=== PATIENT | male | born 1985 | race Caucasian/White ===

== ENCOUNTER → 2019-12-11 13:53 | Outpatient (BNVA) | payer MEDICAID, SELFPAY | PROVIDERS: Visit Provider Specialist | DX: G40.309 Generalized idiopathic epilepsy and epileptic syndromes, not intractable, without status epilepticus (principal); F17.210 Nicotine dependence, cigarettes, uncomplicated | CPT/HCPCS: 99213 ==

== ENCOUNTER 2020-04-15 17:45 | Emergency (ER) | payer MEDICAID, SELFPAY ==
[2020-04-15 17:50] VITALS: BP 118/76; PULSE 132; RESP 18; TEMP 36.3; O2SAT 96; BMI 34.1
[2020-04-15 18:14] VITALS: BP 114/79; PULSE 112; RESP 17; O2SAT 94
[2020-04-15 18:48] LABS: Basophils # 0.1 10^3/uL (0.0-0.1); Basophils % 0.6 %; Eosinophils # 0.1 10^3/uL (0.0-0.8); Eosinophils % 0.6 %; Hematocrit 51.2 % (42.0-52.0); Hemoglobin 16.7 g/dL (11.7-16.6); Lymphocytes # 1.5 10^3/uL (0.8-4.8); Lymphocytes % 19.2 %; Mean Corpuscular HGB Conc 32.6 g/dL (30.0-36.0); Mean Corpuscular Hemoglobin 28.1 pg (28.0-34.0); Mean Corpuscular Volume 86.1 fL (80-94); Monocytes # 0.6 10^3/uL (0.2-0.9); Monocytes % 7.5 %; Neutrophils # 5.73 10^3/uL (1.8-7.7); Neutrophils % 71.8 %; Nucleated Red Blood Cells % 0 %; Platelet Count 294 10^3/cmm (130-400); Red Blood Count 5.95 10^6/uL (4.1-5.3); Red Cell Distribution Width 13.6 % (12.1-15.1)
[2020-04-15 19:04] LABS: INR 1.06 (0.8-1.2); Partial Thromboplastin Time 29.3 SECONDS (23.9-36.7)
[2020-04-15 19:12] LABS: Alanine Aminotransferase 21 U/L (0-41); Albumin Level 4.2 g/dL (3.5-5.2); Alkaline Phosphatase 97 IU/L (40-130); Aspartate Amino Transferase 18 U/L (0-40); Blood Urea Nitrogen 12 mg/dL (6-20); C Reactive Protein 62.4 mg/L (0.0-4.9); Calcium 9.1 mg/dL (8.5-10.5); Carbon Dioxide 24 mmol/L (22-29); Chloride 102 mmol/L (98-107); Creatinine Clr Calc Pharmacy 152.8932; Glomerular Filtration Rate 127.6 mL/min (90-130); Glucose 149 mg/dL (65-115); Lipase 12 U/L (13-60); Osmolality Calculated 281 mOsm/kg (285-295); Sodium 136 mmol/L (136-145); Total Bilirubin 0.6 mg/dL (0.15-1.2); Total Protein 7.2 g/dL (6.6-8.7)
[2020-04-15 19:18] LABS: Alcohol Level < 10 mg/dL (0-10)
--- NOTE | 2020-04-15 20:18 | CTR_ITS ---
PROCEDURE INFORMATION: Exam: CT Abdomen And Pelvis With Contrast Exam date and time: 04/15/2020 9:02 PM Age: 35 years old Clinical indication: Prior surgery; Surgery date: 6+ months; Surgery type: Kypho; Patient HX: C/O llq cramping diarrhea w dark stool; Additional info: Diarrhea, bloody stools TECHNIQUE: Imaging protocol: Computed tomography of the abdomen and pelvis with intravenous contrast. Radiation optimization: All CT scans at this facility use at least one of these dose optimization techniques: automated exposure control; mA and/or kV adjustment per patient size (includes targeted exams where dose is matched to clinical indication); or iterative reconstruction. Contrast material: OMNI 300; Contrast volume: 95 ml; Contrast route: INTRAVENOUS (IV); COMPARISON: CT abdomen pelvis w con* [id number] 04/26/2019 1:06 PM RADIATION DOSE METRICS: Total DLP (mGy-cm): 951.59 FINDINGS: Mediastinal space: A small hiatal hernia is present. Liver: There is a diffuse decrease in hepatic parenchymal density, consistent with fatty infiltration. Unchanged cyst left lobe of the liver is noted. Gallbladder and bile ducts: Normal. No calcified stones. No ductal dilation. Pancreas: Normal. No ductal dilation. Spleen: Normal. No splenomegaly. Adrenals: Normal. No mass. Kidneys and ureters: There is an unchanged posterior right renal partially calcified hypodense cystic lesion measuring 2.7 x 5.1 cm in size. This may be an unchanged partially calcified simple cyst or an old subcapsular hematoma. There is a 2.1 cm midpole simple cyst in the left kidney. There is no evidence of hydronephrosis. There is no evidence of renal calcifications. Stomach and bowel: There is no evidence of intestinal perforation or obstruction. There is no evidence of colitis/diverticulitis. Appendix: The appendix is not definitively identified. However, there is no CT evidence of a right lower quadrant inflammatory process. Intraperitoneal space: Unremarkable. No free air. No significant fluid collection. Vasculature: Unremarkable.No abdominal aortic aneurysm. Lymph nodes: Unremarkable.No enlarged lymph nodes. Bladder: There is nonspecific bladder wall thickening. This may be related to incomplete distention. Reproductive: Unremarkable as visualized. Bones/joints: Unchanged multiple compression fracture deformities in the spine and vertebroplasties are noted. Soft tissues: There is a fat-containing umbilical hernia. CT/CT abdomen pelvis w con* [id number] IMPRESSION: No acute abnormality. No bowel thickening or inflammatory changes. No diverticulitis or colitis. Unchanged simple left renal cyst and unchanged partially calcified right simple cyst versus old partially calcified subcapsular hematoma. COMMENTS: Consistent with the [place]'s Incidental Findings Committee white paper (J Am Augusto Radiol 2018): Any incidental renal lesion less than 1.0 cm or classified as too small to characterize, or any incidental cystic renal lesion characterized as simple-appearing, is likely benign. No follow-up imaging is recommended for these lesions per consensus recommendations based on imaging criteria. Radiation Dose CTDIVOL = (mGy): DLP = 951.59 (mGy-cm)
[2020-04-15 20:20] LABS: Urine Appearance Clear (CLEAR); Urine Color Yellow (Yellow); pH Urine 5 (5-7)
[2020-04-15 20:21] LABS: Add Urine Microscopic? YES; Bilirubin Urine 1+ (NEGATIVE); Blood Urine Neg (Negative); Glucose Urine UA Norm (Normal); Ketones Urine 1+ (Negative); Leukocyte Esterase Urine Trace (Negative); Nitrate Urine Negative (Negative); Protein Urine Neg (Negative); Urobilinogen Urine 4 mg/dL (Negative)
[2020-04-15 20:25] LABS: Add Urine Culture? No; Bacteria Urine TRACE; Mucus Urine 4+; RBC Urine 0-4 /hpf (0-2); Squamous Epithelial Cell Urine 0-4 (0-5); WBC Urine 0-4 /hpf (0-5)
[2020-04-15] MEDS: sodium chloride 0.9% 1,000 ML 999 ML IV (20:27)
--- NOTE | 2020-04-15 20:40 | PC.NURSE ---
during pt rounds, pt requesting something for nausea . notified
[2020-04-15] MEDS: ondansetron 2 mg/ML SDV 2 mL 4 MG IVP (20:59)
[2020-04-15] MEDS: iohexol 300 mg/mL 100 mL Btl IV (21:15)
[2020-04-15 22:19] LABS: Hematocrit 49.9 % (42.0-52.0); Hemoglobin 16.2 g/dL (11.7-16.6)
--- NOTE | 2020-04-15 22:24 | ED_ITS ---
HPI - GI Bleed General: Chief complaint: GI Bleed Stated complaint: passing a lot of blood since 10 p 9/6 Time Seen by Provider: 04/15/20 18:11 Source: patient Mode of arrival: ambulatory Limitations: no limitations History of Present Illness: HPI Narrative: Patient stated that he started having diarrhea yesterday. He says he had several episodes yesterday. Later on in the day he noticed blood streaks in his stools. He felt persisted today and he felt the amount of blood was increasing so he came to the emergency department to be evaluated. He denies dizziness, nausea, vomiting, fever, and has only mild abdominal cramping. He does not take any anticoagulants but he said that he often takes about 6 tablets of Excedrin for chronic pain. complaint: blood streaked stool Onset (ago): day(s) (1) Pain Consistency: intermittent Severity: mild Relieving factors: none Exacerbating factors: none Associated symptoms: Reports abdominal pain; Denies chills, easy bruising, epistaxis, fever(s), headache(s), malaise, nausea, other bleeding, poor appetite, rash, syncope, vomiting, weakness or other Review of Systems General: Reports: 10 or more systems reviewed and unremarkable except in HPI and below Const: Denies: fever(s), chills or malaise Eyes: Denies: change in vision or blurry vision ENMT: Denies: epistaxis Card: Denies: syncope Resp: Denies: dyspnea, productive cough or non-productive cough GI: Reports: abdominal pain; Denies: nausea or vomiting : Denies: flank pain, dysuria, urinary frequency, urinary urgency or urinary hesitancy Musc: Denies: neck pain, back pain or extremity swelling Skin/Breast: Denies: rash Neuro: Denies: headache(s) Endo: Denies: polyuria, polydipsia or tired all the time Preet/Lymph: Denies: easy bruising PFSH ED PFSH: Medical History Convulsive generalized seizure disorder Family History Other Heart disease Lung disease Social History Smoking and tobacco status: current every day smoker cigarettes Packs smoked per day: 2 History of recent travel: No Physical Exam Const: COMMON NORMALS: no acute distress, average body habitus, patient oriented x3, no limitations, healthy appearing, alert and well nourished HENMT: COMMON NORMALS: normocephalic, atraumatic and moist oral mucous membranes HEAD & SCALP: normocephalic and atraumatic Neck/C-Spine: COMMON NORMALS: no meningeal signs and no JVD Resp: COMMON NORMALS: normal respiratory effort, No retractions, No use of accessory muscles, clear to auscultation bilaterally and percussion normal AUSCULTATION: clear to auscultation bilaterally PERCUSSION: percussion normal Cardio: COMMON NORMALS: no JVD, regular rate, regular rhythm, S1 normal heart sound present, S2 normal heart sound present, No gallops present (Cardio), No clicks present (Cardio), No murmurs present (Cardio), No rub (Cardio) and Peripheral pulses 2+ throughout RATE: regular rate RHYTHM: regular rhythm HEART SOUNDS: S1 normal heart sound present and S2 normal heart sound present PERIPHERAL PULSES: Peripheral pulses 2+ throughout GI: COMMON NORMALS: Normal to inspection, nondistended, normoactive bowel sounds present, Soft to palpation, non-tender, No hepatosplenomegaly present, no masses and no bruits PALPATION: Yes Soft to palpation and Yes No hepatosplenomegaly present Extremity: COMMON NORMALS: normal to inspection, full ROM, capillary refill normal, no calf tenderness and no pedal edema Neuro: COMMON NORMALS: patient oriented x3 SENSORIUM/ORIENTATION: Yes alert MENINGEAL SIGNS: Yes no meningeal signs Skin: COMMON NORMALS: no rashes or lesions noted, no wounds, turgor normal, no jaundice, no petechiae and no mottling GENERAL SKIN EXAM: no rashes or lesions noted and turgor normal Course Reevaluation(s): Reevaluation #1: Repeat hemoglobin stable. We will discharge him home. Advised that he needs to get a colonoscopy outpatient. He said he has been thinking about states because cancer runs in his family and so he will schedule one. Other than that we will not order any new medications. He voiced understanding and is in agreement with the plan Time: 22:24 Vital Signs: Vital signs: Vital Signs Temperature 97.3 F L 04/15/20 17:50 Pulse Rate 87 04/15/20 22:47 Respiratory Rate 22 H 04/15/20 22:47 Blood Pressure 116/54 04/15/20 22:47 Pulse Oximetry 97 04/15/20 22:47 MDM - GI Bleed MDM Narrative: Medical decision making narrative: 55-year-old male who presented with bloody stools. Evaluation in the emergency department showed his hemoglobin was a little high initially, may be due to dehydration but a repeat hemoglobin about 4 hours later was essentially unchanged. He had a positive Hemoccult stool sample. He had a bowel movement in the emergency department and there was no gross blood in his stool. He was educated on the need to get a colonoscopy as he has a strong family history of malignancy. He promised to do that. He is also advised to discontinue Excedrin that he takes excessively. Medical Records: Attestation: I reviewed the patient's medical records. Lab Data: Attestation: I reviewed the patient's lab results. Labs: Lab Results 04/15/20 04/15/20 04/15/20 Range/Units 18:30 18:30 18:30 WBC 8.0 (4.0-10.0) 10^3/ uL RBC 5.95 H (4.1-5.3) 10^6/u L Hgb 16.7 H (11.7-16.6) g/dL Hct 51.2 (42.0-52.0) % MCV 86.1 (80-94) fL MCH 28.1 (28.0-34.0) pg MCHC 32.6 (30.0-36.0) g/dL RDW 13.6 (12.1-15.1) % Plt Count 294 (130-400) 10^3/c mm MPV 10.0 (7.4-10.4) fL Neut % (Auto) 71.8 % Lymph % (Auto) 19.2 % Robertson % (Auto) 7.5 % Eos % (Auto) 0.6 % Baso % (Auto) 0.6 % Neut # (Auto) 5.73 (1.8-7.7) 10^3/u L Lymph # (Auto) 1.5 (0.8-4.8) 10^3/u L Robertson # (Auto) 0.6 (0.2-0.9) 10^3/u L Eos # (Auto) 0.1 (0.0-0.8) 10^3/u L Baso # (Auto) 0.1 (0.0-0.1) 10^3/u L Nucleated RBC % (a uto) 0 % Nucleated RBCs # 0.0 /100WBC PT 14.10 (12.1-14.9) SECO NDS INR 1.06 (0.8-1.2) APTT 29.3 (23.9-36.7) SECO NDS Sodium 136 (136-145) mmol/L Potassium 4.0 (3.5-5.1) mmol/L Chloride 102 (98-107) mmol/L Carbon Dioxide 24 (22-29) mmol/L Anion Gap 14.0 (5-19) BUN 12 (6-20) mg/dL Creatinine 0.7 (0.7-1.2) mg/dL GFR Calculation 127.6 (90-130) mL/min Glucose 149 H (65-115) mg/dL Calculated Osmolal ity 281 L (285-295) mOsm/k g Calcium 9.1 (8.5-10.5) mg/dL Total Bilirubin 0.6 (0.15-1.2) mg/dL AST 18 (0-40) U/L ALT 21 (0-41) U/L Alkaline Phosphata se 97 (40-130) IU/L C-Reactive Protein 62.4 H (0.0-4.9) mg/L Total Protein 7.2 (6.6-8.7) g/dL Albumin 4.2 (3.5-5.2) g/dL Globulin 3.0 (1.3-4.6) g/dL Lipase 12 L (13-60) U/L Urine Color (Yellow) Urine Appearance (CLEAR) Urine pH (5-7) Ur Specific Gravit y (1.005-1.030) Urine Protein (Negative) Urine Glucose (UA) (Normal) Urine Ketones (Negative) Urine Blood (Negative) Urine Nitrate (Negative) Urine Bilirubin (NEGATIVE) Urine Urobilinogen (Negative) mg/dL Ur Leukocyte Jocelyne ase (Negative) Urine RBC (0-2) /hpf Urine WBC (0-5) /hpf Ur Squamous Epith Cells (0-5) Amorphous Sediment Urine Bacteria (NONE) Urine Mucus Ethyl Alcohol < 10 (0-10) mg/dL Blood Type Rho(D) Type Antibody Screen 04/15/20 04/15/20 04/15/20 Range/Units 18:30 20:15 22:14 WBC (4.0-10.0) 10^3/ uL RBC (4.1-5.3) 10^6/u L Hgb 16.2 (11.7-16.6) g/dL Hct 49.9 (42.0-52.0) % MCV (80-94) fL MCH (28.0-34.0) pg MCHC (30.0-36.0) g/dL RDW (12.1-15.1) % Plt Count (130-400) 10^3/c mm MPV (7.4-10.4) fL Neut % (Auto) % Lymph % (Auto) % Robertson % (Auto) % Eos % (Auto) % Baso % (Auto) % Neut # (Auto) (1.8-7.7) 10^3/u L Lymph # (Auto) (0.8-4.8) 10^3/u L Robertson # (Auto) (0.2-0.9) 10^3/u L Eos # (Auto) (0.0-0.8) 10^3/u L Baso # (Auto) (0.0-0.1) 10^3/u L Nucleated RBC % (a uto) % Nucleated RBCs # /100WBC PT (12.1-14.9) SECO NDS INR (0.8-1.2) APTT (23.9-36.7) SECO NDS Sodium (136-145) mmol/L Potassium (3.5-5.1) mmol/L Chloride (98-107) mmol/L Carbon Dioxide (22-29) mmol/L Anion Gap (5-19) BUN (6-20) mg/dL Creatinine (0.7-1.2) mg/dL GFR Calculation (90-130) mL/min Glucose (65-115) mg/dL Calculated Osmolal ity (285-295) mOsm/k g Calcium (8.5-10.5) mg/dL Total Bilirubin (0.15-1.2) mg/dL AST (0-40) U/L ALT (0-41) U/L Alkaline Phosphata se (40-130) IU/L C-Reactive Protein (0.0-4.9) mg/L Total Protein (6.6-8.7) g/dL Albumin (3.5-5.2) g/dL Globulin (1.3-4.6) g/dL Lipase (13-60) U/L Urine Color Yellow (Yellow) Urine Appearance Clear (CLEAR) Urine pH 5 (5-7) Ur Specific Gravit y 1.020 (1.005-1.030) Urine Protein Neg (Negative) Urine Glucose (UA) Norm (Normal) Urine Ketones 1+ H (Negative) Urine Blood Neg (Negative) Urine Nitrate Negative (Negative) Urine Bilirubin 1+ H (NEGATIVE) Urine Urobilinogen 4 H (Negative) mg/dL Ur Leukocyte Jocelyne ase Trace H (Negative) Urine RBC 0-4 H (0-2) /hpf Urine WBC 0-4 H (0-5) /hpf Ur Squamous Epith Cells 0-4 H (0-5) Amorphous Sediment Not Reportable Urine Bacteria Trace (NONE) Urine Mucus 4+ Ethyl Alcohol (0-10) mg/dL Blood Type A Positive Rho(D) Type Positive Antibody Screen Negative Imaging Data^: CT Abd/Pel: Radiologist's impression: [place] [address] CT Scan Report Signed Patient: Dick Milner #: [id number] : 1985Acct#:[id number] Age/Sex: 35 / MADM Date: 04/15/20 Loc: ERRoom/Bed: Attending Dr: Ordering Provider/Ordering MD: Hubert Calle MD, [facility] Date of Service: 04/15/20 Procedure(s): CT abdomen pelvis w con* [id number] Accession Number(s): [id number] Report Number: [id number] PROCEDURE INFORMATION: Exam: CT Abdomen And Pelvis With Contrast Exam date and time: 04/15/2020 9:02 PM Age: 35 years old Clinical indication: Prior surgery; Surgery date: 6+ months; Surgery type: Kypho; Patient HX: C/O llq cramping diarrhea w dark stool; Additional info: Diarrhea, bloody stools TECHNIQUE: Imaging protocol: Computed tomography of the abdomen and pelvis with intravenous contrast. Radiation optimization: All CT scans at this facility use at least one of these dose optimization techniques: automated exposure control; mA and/or kV adjustment per patient size (includes targeted exams where dose is matched to clinical indication); or iterative reconstruction. Contrast material: OMNI 300; Contrast volume: 95 ml; Contrast route: INTRAVENOUS (IV); COMPARISON: CT abdomen pelvis w con* [id number] 04/26/2019 1:06 PM RADIATION DOSE METRICS: Total DLP (mGy-cm): 951.59 FINDINGS: Mediastinal space: A small hiatal hernia is present. Liver: There is a diffuse decrease in hepatic parenchymal density, consistent with fatty infiltration. Unchanged cyst left lobe of the liver is noted. Gallbladder and bile ducts: Normal. No calcified stones. No ductal dilation. Pancreas: Normal. No ductal dilation. Spleen: Normal. No splenomegaly. Adrenals: Normal. No mass. Kidneys and ureters: There is an unchanged posterior right renal partially calcified hypodense cystic lesion measuring 2.7 x 5.1 cm in size. This may be an unchanged partially calcified simple cyst or an old subcapsular hematoma. There is a 2.1 cm midpole simple cyst in the left kidney. There is no evidence of hydronephrosis. There is no evidence of renal calcifications. Stomach and bowel: There is no evidence of intestinal perforation or obstruction. There is no evidence of colitis/diverticulitis. Appendix: The appendix is not definitively identified. However, there is no CT evidence of a right lower quadrant inflammatory process. Intraperitoneal space: Unremarkable. No free air. No significant fluid collection. Vasculature: Unremarkable.No abdominal aortic aneurysm. Lymph nodes: Unremarkable.No enlarged lymph nodes. Bladder: There is nonspecific bladder wall thickening. This may be related to incomplete distention. Reproductive: Unremarkable as visualized. Bones/joints: Unchanged multiple compression fracture deformities in the spine and vertebroplasties are noted. Soft tissues: There is a fat-containing umbilical hernia. CT/CT abdomen pelvis w con* [id number] IMPRESSION: No acute abnormality. No bowel thickening or inflammatory changes. No diverticulitis or colitis. Unchanged simple left renal cyst and unchanged partially calcified right simple cyst versus old partially calcified subcapsular hematoma. COMMENTS: Consistent with the [place]'s Incidental Findings Committee white paper (J Am Augusto Radiol 2018): Any incidental renal lesion less than 1.0 cm or classified as too small to characterize, or any incidental cystic renal lesion characterized as simple-appearing, is likely benign. No follow-up imaging is recommended for these lesions per consensus recommendations based on imaging criteria. Radiation Dose CTDIVOL = (mGy): DLP = 951.59 (mGy-cm) Dictated By:Renae Muñoz Signed By:Sonny Muñozigned Date/Time:04/15/202133 DD/ 32 Discharge Plan Discharge Patient Disposition: Home Clinical Impression: Lower gastrointestinal hemorrhage Condition: Stable Prescriptions: Discontinued Excedrin Extra Strength 250-250-65 mg tablet 1 tab PO Q6H PRNRF: 0 No Action hydrocodone-acetaminophen 10-325 mg tablet 1 tab PO Q4H PRNRF: 0 morphine 15 mg tablet 15 mg PO Q4H PRNRF: 0 diphenhydramine HCl [NightTime Sleep Aid (diphen)] 25 mg capsule 25 mg PO TID PRNRF: 0 tizanidine 4 mg capsule 4 mg PO Q8H PRNRF: 0 levetiracetam [Keppra] 500 mg tablet 750 mg PO BID 30 Days Qty: 90 RF: 12 Discharge Orders: Discharge Order (Routine); Ordered 04/15/20 Ordered By: Hubert Calle Discharge Diet: Usual diet Discharge Activity: Resume usual activity Patient Instructions: Gastrointestinal Bleeding (ED) Activity Restrictions/Additional Instructions: Return for any new or worsening symptoms. Follow-up with your primary care provider within 2 days so he can be scheduled for an outpatient colonoscopy. It is important when you obtain a colonoscopy to rule out any serious or life-threatening conditions. Consume a high-fiber diet. Drink plenty of fluids to keep well-hydrated. Discharge Date/Time: 04/15/20 22:40 Coding Level of Care Code ED Surveyor Chain Helper for Arturo Banks
[2020-04-15 22:47] VITALS: BP 116/54; PULSE 87; RESP 22; O2SAT 97
--- NOTE | 2020-04-19 11:13 | DCPLANNER ---
manager of maintenance had message to speak with patient about getting established with a primary care physician. manager of maintenance called patient at [phone], unable to speak with patient at this time, a voicemail was left for patient to return case management social worker phone call.
== END 2020-04-15 22:40 | disposition home or self-care (01) ==
PROVIDERS: Emergency Provider Family Medicine
DX: K92.2 Gastrointestinal hemorrhage, unspecified (principal); F17.210 Nicotine dependence, cigarettes, uncomplicated
CPT/HCPCS: 12345; 74177; 80053; 80307; 81001; 82272; 83690; 85014; 85018; 85025; 85610; 85730; 86140; 86850; 86900; 96361; 96374; 99283; 99284; J2405; J7030; Q9967

== ENCOUNTER → 2020-12-24 12:36 | Outpatient (BNVA) | payer MEDICAID, SELFPAY | PROVIDERS: Visit Provider Specialist | DX: G40.309 Generalized idiopathic epilepsy and epileptic syndromes, not intractable, without status epilepticus (principal); F17.210 Nicotine dependence, cigarettes, uncomplicated | CPT/HCPCS: 99214 ==

== ENCOUNTER → 2021-06-24 14:43 | Outpatient (BNVA) | payer MEDICAID, SELFPAY | PROVIDERS: Visit Provider Specialist | DX: G40.309 Generalized idiopathic epilepsy and epileptic syndromes, not intractable, without status epilepticus (principal); F17.210 Nicotine dependence, cigarettes, uncomplicated | CPT/HCPCS: 99214 ==

== ENCOUNTER → 2022-02-11 14:15 | Outpatient (BNVA) | payer MEDICAID, SELFPAY | PROVIDERS: Visit Provider Specialist | DX: G40.309 Generalized idiopathic epilepsy and epileptic syndromes, not intractable, without status epilepticus (principal) | CPT/HCPCS: 36415; 80053; 80164; 80177; 84443; 85025; 99214 ==

== ENCOUNTER 2022-08-24 12:34 | Emergency (ER) | payer MEDICAID, SELFPAY ==
[2022-08-24 12:40] VITALS: BP 117/82; PULSE 118; RESP 18; TEMP 37.1; O2SAT 96
--- NOTE | 2022-08-24 13:09 | ED_ITS ---
HPI - Extremity Problem General: Chief complaint: Extremity Injury, Lower Stated complaint: open wound right foot Time Seen by Provider: 08/24/22 12:48 Source: patient Mode of arrival: ambulatory Limitations: no limitations History of Present Illness: Patient is a 37-year-old male who presents to ED today with complaints of an acute on chronic wound to his right foot. Patient states approximately 2 years ago he had some type of computer numerical control grinder fall onto the dorsum of his right foot lacerating multiple tendons and severing his dorsalis pedis artery. Patient states trauma required surgery and this was performed at [facility]. He states he never had any type of follow-up with the orthopedic surgeon. He states since surgery he has intermittently developed a wound on the dorsum of his foot. He states at one point he visualized a large thick tough piece of string that he believes may have been placed for tendon or artery repair. He states he wants this removed today. MD Complaint: extremity pain and other (sore to R foot) Onset (ago): month(s) Pain Consistency: intermittent Location: right and lower extremity Radiation: none Exacerbating factors: nothing Associated symptoms: Reports no associated symptoms Review of Systems Musc: Reports: extremity pain (R foot) Skin/Breast: Reports: other (sore to R foot) COUNTS INCLUDE 234 BEDS AT THE [facility] ED PFSH: Medical History Convulsive generalized seizure disorder Family History Other Heart disease Lung disease Social History Smoking and tobacco status: current every day smoker (2 packs a day) cigarettes Packs smoked per day: 2 Alcohol intake: never History of recent travel: No Physical Exam Const: COMMON NORMALS: no acute distress, no limitations, alert and well nourished Extremity: GENERAL: Yes normal exam except as noted RIGHT LOWER EXTREMITY: Yes foot & digits OTHER: pt has a 1.5cm open nodule to mid dorsal R foot; there is no active drainage; no surrounding cellulitis; NV intact; chronic flexion deformities to toes from previous tendon damage Neuro: SENSORIUM/ORIENTATION: Yes alert Course Vital Signs: Vital signs: Vital Signs Temperature 98.8 F 08/24/22 12:40 Pulse Rate 118 H 08/24/22 12:40 Respiratory Rate 18 08/24/22 12:40 Blood Pressure 117/82 08/24/22 12:40 Pulse Oximetry 96 08/24/22 12:40 Oxygen Delivery Me thod 08/24/22 12:40 MDM - Extremity (Nontraumatic) Medical Decision Making Patient with an acute on chronic wound to the dorsum of his foot. There is nothing emergent that needs to be done at this time. Wound is not acutely infected. We will go ahead and place on antibiotics to prevent this. I recommended patient contact [facility] medical records and try to get operative report. Sound like patient is having localized reaction to possible hardware/wiring used during surgery (difficult to know as I do not have any type of operative report). He states he would like to follow-up with podiatry here in [facility] as it is difficult to get to [place]. Information placed with case management. Return to ED precautions given. Discharge Plan Discharge Patient Disposition: Home Clinical Impression: Wound of foot Condition: Stable Prescriptions: New cephalexin 500 mg capsule 500 mg PO Q6H 7 Days Qty: 28 0RF No Action hydrocodone-acetaminophen 10-325 mg tablet 1 tab PO Q4H PRN morphine 15 mg tablet 15 mg PO Q4H PRN diphenhydramine HCl [NightTime Sleep Aid (diphen)] 25 mg capsule 25 mg PO TID PRN tizanidine 4 mg capsule 4 mg PO Q8H PRN midazolam 5 mg/spray (0.1 mL) spray,non-aerosol 1 spray intranasal ONCE Qty: 1 5RF Rx Instructions: Give 1 spray at the start of a seizure levetiracetam [Keppra XR] 750 mg tablet extended release 24 hr 2,250 mg PO DAILY Qty: 90 6RF divalproex [Depakote ER] 500 mg tablet extended release 24 hr 1,000 mg PO DAILY Qty: 60 2RF Discharge Orders: Discharge ED (Routine); Ordered 08/24/22 Ordered By: Aubrie Mayes Coding Level of Care Code ED Education Rn for Arturo Banks
--- NOTE | 2022-08-24 13:46 | DCPLANNER ---
Addendum entered by Mimi Sewell 10/01/22 13:35: Patient had an appointment scheduled with ortho - patient did attend appointment. Addendum entered by Mimi Sewell 08/26/22 10:45: Patient has a follow up appointment scheduled for Wednesday, August 28, 2022 at 11:[address] Currie at ortho. Clinic will call patient with appointment information. Original Note: manager graphic had message to schedule a follow up appointment for patient with ortho. manager graphic sent patients information to the front office staff at podiatry. Patients information will be printed and reviewed. Clinic will call patient with appointment information.
== END 2022-08-24 13:25 | disposition home or self-care (01) ==
PROVIDERS: Emergency Provider Physician Assistant
DX: S91.301A Unspecified open wound, right foot, initial encounter (principal); X58.XXXA Exposure to other specified factors, initial encounter; F17.210 Nicotine dependence, cigarettes, uncomplicated
CPT/HCPCS: 99283

== ENCOUNTER → 2022-08-28 11:04 | Outpatient (BNVA) | payer MEDICAID, SELFPAY | PROVIDERS: Visit Provider Podiatrist Foot & Ankle Surgery | DX: L97.523 Non-pressure chronic ulcer of other part of left foot with necrosis of muscle (principal) | CPT/HCPCS: 99204 ==

== ENCOUNTER → 2022-09-28 12:58 | Outpatient (BNVA) | payer MEDICAID, SELFPAY | PROVIDERS: Visit Provider Podiatrist Foot & Ankle Surgery | DX: Z09 Encounter for follow-up examination after completed treatment for conditions other than malignant neoplasm (principal); L97.521 Non-pressure chronic ulcer of other part of left foot limited to breakdown of skin | CPT/HCPCS: 99213 ==

== ENCOUNTER 2022-10-08 15:13 | Outpatient (CLI) | payer MEDICAID, SELFPAY ==
--- NOTE | 2022-10-08 15:32 | MR_ITS ---
WS: [id number] EXAMINATION: MR foot RT wo/w con [id number] ORDER DATE: 10/08/2022 3:37 PM COMPARISON: None. HISTORY: Rule out oestomylystis to eval foreign body to r mid foot CONTRAST: None. TECHNIQUE: Sagittal T1, sagittal STIR, coronal PD, coronal T2, axial T1, axial T2, and axial PD imagi ng with fat saturation technique. Post gadolinium imaging includes axial T1, coronal T1, and sagittal T1 with fat saturation technique. FINDINGS: No prior radiograph or CT comparisons. Palpable marker overlying the dorsal midfoot at the level of the 2nd cuneiform. Associated susceptibi lity artifact in the dorsal soft tissues at this level likely due to prior surgery or possibly foreig n body. No evidence of underlying abscess or drainable fluid collection. Normal bone marrow signal in the underlying cuneiforms and base of the 2nd metatarsal. No evidence of osteomyelitis. Normal navicular. Normal cuboid. Metatarsals and visualized phalanges are normal in appearance. No ab normal gadolinium enhancement. Normal visualized forefoot plantar soft tissues. No other acute findin gs. 1. IMPRESSION: No evidence of osteomyelitis. No evidence of drainable fluid collection or abscess. 2. Susceptibility artifact in the area of palpable concern overlying the junction of the 1st and 2nd cuneiform and base of the 2nd metatarsal. Normal underlying bone marrow signal in these areas. This is presumably due to prior surgery versus possibly foreign body. Recommend correlation with clinical history. Radiographs may be helpful. 3. Normal bone marrow signal in the tarsal bones and metatarsals. 4. No other suspicious findings.
[2022-10-08] MEDS: gadobenate dimeglumine 20 mL vial IV (16:39)
== END 2022-10-08 15:14 | disposition home or self-care (01) ==
PROVIDERS: Visit Provider Podiatrist Foot & Ankle Surgery
DX: L97.523 Non-pressure chronic ulcer of other part of left foot with necrosis of muscle (principal)
CPT/HCPCS: 73720; A9577

== ENCOUNTER → 2022-10-12 15:41 | Outpatient (BNVA) | payer MEDICAID, SELFPAY | PROVIDERS: Visit Provider Podiatrist Foot & Ankle Surgery | DX: L97.523 Non-pressure chronic ulcer of other part of left foot with necrosis of muscle (principal); G57.91 Unspecified mononeuropathy of right lower limb; S90.851D Superficial foreign body, right foot, subsequent encounter; W20.8XXD Other cause of strike by thrown, projected or falling object, subsequent encounter | CPT/HCPCS: 99214 ==

== ENCOUNTER 2022-10-23 08:11 | Day surgery (SDC) | payer MEDICAID, SELFPAY ==
[2022-10-22 09:03] VITALS: BMI 32.5
[2022-10-23] VITALS (7 sets, daily range): BP systolic 87–117; BP diastolic 50–84; PULSE 55–85; RESP 16–17; TEMP 36.2–36.7; O2SAT 96–100
[2022-10-23] MEDS: sodium chloride 0.9% 1,000 ML 30 ML IV (09:01)
--- NOTE | 2022-10-23 09:28 | W.PM.OPSUD ---
Surgery/Procedure H&P Update DATE OF PROCEDURE: October 23, 2022 DATE H&P PERFORMED: 10/12/22 CHANGES TO PREVIOUS DOCUMENTATION: None PREOP DIAGNOSIS: Foreign body right foot, surgical wound right foot, neuritis right foot PLANNED PROCEDURE: Operation Date: 10/23/22 10:05 Proposed Procedures p ?Secondary closure left foot, external neuroplasty left foot 08670, 82180,T81.31XA,M79.672,S94.32XA(Left) - Daniel Currie DPM s , external neuroplasty left foot(Left) - Daniel Currie DPM
[2022-10-23] MEDS: ceFAZolin 2,000 MG in sodium chloride 0.9% (plus) 50 ML 100 MG IV (09:49)
--- NOTE | 2022-10-23 10:34 | P.OP_ITS ---
Operative Report Date of procedure: October 23, 2022 Pre-op diagnosis: Foreign body right foot Surgical wound right foot Neuritis right foot Post-op diagnosis: Foreign body right foot Surgical wound right foot Neuritis right foot Procedure done: Secondary closure left foot. CPT code 36863 External neuroplasty left foot. CPT code 85916 Implants: 3-0 Vicryl, 4-0 Vicryl, 4 nylon Specimens removed/disposition: Nonabsorbable suture consistent with FiberWire was removed Pathology: None Surgeon: Daniel Currie D.P.M. Tunnel Elastic Operator Lockstitch: [place] Estimated blood loss: 5 11 IV fluids: 0 Urine output: 0 Complications: None Brief History: Mr. Milner is a 37-year-old male presents for follow-up on a right foot wound he sustained 2 years ago.? He dropped a angle notch grinder while it was running and hit the top of his right foot.? He reports a deep laceration that resulted in neuro and vascular injury.? He states that the surgical repair was done at [facility] in [facility].? He complains of a cordlike suture material that has been protruding through the base of the wound intermittently with the wound opening up and erupting and then rehealing several times over the past 2 years and is requesting this to be removed.? He states that there is pain associated with the sore, he has pain when wearing socks and shoes from the mass that is tenting the skin.? He completed an MRI of his right foot 10-29 and is here to discuss those results is requesting surgical excision of the mass. Patient is in pain management with Dr. Boothe in [place].? No changes anticipated to his current pain regimen.? Planning on Exparel to provide extended local anesthetic. Right dorsal forefoot wound is open at today's visit.? Discussed several working diagnosis relating to his right foot trauma.? His symptoms of entrapment of the deep peroneal nerve, also MRI shows foreign body.? He is requesting removal of nonabsorbable suture.? I discussed risk versus benefits of mobilizing the deep peroneal nerve from any adhesions or scar tissue.? This is something he like to have schedule the next available opportunity.? I reviewed at length with the patient, the risks, potential complications, benefits, alternatives, expectations, and typical outcomes associated with the surgery. The risks and potential complications were explained in detail, including but not limited to infection, wound dehiscence or soft tissue complications, bleeding and hematoma, chronic edema, neuritis or nerve damage producing numbness or chronic pain, CRPS, failure to relieve pain or worsening pain, thick / painful / unsightly scar, limited motion / stiffness, malposition, delayed union, malunion, or nonunion, fracture, reaction to implants, anesthetic complications, venous thromboembolism, and deformity recurrence.? I discussed the notion of no regrets with the patient as it pertains to complications and outcomes. The patient seemed to understand the nature of the proposed care and required convalescence. They asked appropriate questions, answered to their satisfaction. They are aware no guarantees can be made as to a satisfactory outcome and they understand there may be other possible unforeseen complications or outcomes not listed here that will be treated accordingly if they arise. There were no written or implied guarantees given to the patient. They gave informed consent to proceed. Procedure: Under mild sedation the patient was brought to the operating room and remained on the gurney in supine position. A timeout was performed. Anesthesia was then administered by the anesthesia service. Local anesthesia was injected by myself consisting of 20 cc of 0.5% Marcaine in a proximal V-block to the right dorsal midfoot proximal to the planned incision and the surgical wound. Exparel 10 cc was infiltrated subcutaneously in a grid like fashion per manufacture recommendation and technique to the right proximal midfoot as well. A well- padded pneumatic tourniquet was applied to the right ankle. The right lower extremity was scrubbed, prepped and draped utilizing normal aseptic technique. Attention was directed to the dorsum of the right foot where a complicated wound was appreciated with deep structures exposed, the wound measured 4 mm x 2 mm with exposed tendon and foreign body appreciated within the base of the wound that appeared to be near the neurovascular bundle. Utilizing extreme care the wound margins were freshened utilizing a #15 blade and pickups both at the lateral and medial margins and extended proximally and distally approximately 3 mm, skin margins that were excised were passed from the operative field and the incision was irrigated with copious amounts of sterile skin solution. Nonabsorbable suture was visualized appeared to be a heavy tensile nonabsorbable, had the appearance of #2 FiberWire and was tied off around the neurovascular bundle consisting of deep peroneal nerve and dorsalis pedis artery and vein with the knot oriented superior, this nonabsorbable suture was carefully excised and removed from the foot and passed from the operative field, upon removal of the nonabsorbable suture no bleeding was appreciated. Impressive amount of scar tissue within the incision was sharply excised u tilizing browns and 15 blade. Nonabsorbable suture as above was removed and freed from the deep peroneal nerve. Direct visualization of the deep peroneal nerve with fibrosing and adhesions were identified and released utilizing sharp and blunt technique. The deep peroneal nerve was mobilized from its adhesions and freed from its surrounding contractures. Deep peroneal nerve was visualized and intact following mobilization and external neuroplasty. The incision was irrigated with copious amounts of sterile skin solution. Incision was then closed in a layered fashion utilizing 3-0 Vicryl at the deep fascia, 4-0 Vicryl subcutaneous tissue with care taken to avoid the neurovascular bundle. Skin was closed with 4-0 nylon. Was able to approximate the incision nicely without excessive tension. The incision was dressed with Adaptic, sterile 4 x 4's, Kerlix and Rony wrap. Cam boot was applied to the right foot. Tourniquet was deflated and a prompt hyperemic response was noted to the distal digits of the right foot. Patient tolerated the procedure and anesthesia well and was transferred to the PACU with vital signs stable and vascular status intact. Following a period of postop monitoring he will be discharged home is to reduce his activities, he is advised to elevate his right foot while resting. Was given at home care and follow-up instructions.
--- NOTE | 2022-10-23 11:07 | ANES.PREANE2 ---
Pre-Anesthetic Assessment Height/Weight: Height 1.65 m Weight 88.904 kg Temp Pulse Resp BP Pulse Ox O2 Del Method O2 Flow Rate 97.3 F L 78 16 117/79 98 6 10/23/22 11:06 10/23/22 11:06 10/23/22 11:06 10/23/22 11:06 10/23/22 11:06 10/23/22 11:06 10/23/22 10:30 Preop Diagnosis: Foreign body right foot, surgical wound right foot, neuritis right foot Operation Date: 10/23/22 10:05 Proposed Procedures p ?Secondary closure left foot, external neuroplasty left foot 82193, 88273,T81.31XA,M79.672,S94.32XA(Left) - Daniel Currie DPM s , external neuroplasty left foot(Left) - Daniel Currie DPM Familial anesthetic complications: none Was Beta Sena taken within 24 hours: N/A Was Clonidine taken within 24 hours: N/A Last intake: Intake Last Liquid Date 10/23/22 Last Liquid Time 03:30 Last Solid Date 10/23/22 Last Solid Time 19:30 Social Tobacco and No alcohol Exam alert, oriented x 3 and regular rate & rhythm Airway Submandibular: within normal limits Cervical ROM: within normal limits Mallampati: Class II Dentition: false Pulmonary Chronic Obstructive Pulmonary Disease Metabolic Morbid Obesity Neuropsych Seizure Chronic pain/opioid Anesthetic Plan ASA status: 3 Anesthesia: Choice Medications/Allergies Home Medications Medication Instructions Recorded Confirmed Last Taken Type diphenhydramine HCl 25 mg capsule 50 mg PO TID PRN sleep 12/11/19 10/23/22 10/22/22 21:30 History (NightTime Sleep Aid (diphenhydramine)) morphine 15 mg immediate release 15 mg PO Q4H PRN Pain 12/11/19 10/23/22 10/23/22 07:15 History tablet tizanidine 4 mg capsule 4 mg PO Q8H PRN muscle spasm 12/11/19 10/23/22 10/22/22 21:30 History divalproex 500 mg tablet,extended 1,000 mg PO DAILY #60 tabs 01/13/22 10/23/22 10/23/22 07:15 Rx release 24 hr (Depakote ER) levetiracetam 750 mg 2,250 mg PO DAILY 10/23/22 10/23/22 10/23/22 07:15 History tablet,extended release 24 hr (Keppra XR) naloxone 2 mg/actuation nasal spray 2 mg intranasal PRN PRN Opioid 10/23/22 10/23/22 Unknown History Overdose Allergies Allergy/AdvReac Type Severity Reaction Status Date / Time diphenhydramine Allergy Mild Edema, Verified 10/23/22 08:32 [From Benadryl] Rash, Swelling Current Medications Generic Name Dose Route Start Last Admin Trade Name Freq PRN Reason Stop Dose Admin Sodium Chloride 1,000 mls @ 30 mls/hr 10/23/22 08:30 10/23/22 11:05 Sodium Chloride 0.9% IV 10/24/22 08:29 Infused .Q24H ERASTO Infusion PFSH Anesthesia Medical History Convulsive generalized seizure disorder Family History Other Heart disease Lung disease Social History Smoking and tobacco status: current every day smoker (2 packs a day) cigarettes Packs smoked per day: 2 Alcohol intake: never Data Anesthesia Cardiac Studies: No Data to Display
--- NOTE | 2022-10-23 14:11 | ANE.PACU2 ---
Inpatient post-anesthesia follow up: Airway intact: Yes Vital signs: Temperature 97.3 F Pulse Rate 78 Respiratory Rate 16 Blood Pressure 117/79 Pulse Oximetry 98 Oxygen Delivery Me thod Room Air Oxygen Flow Rate 6 Fraction of Inspir ed Oxygen Hydration adequate: Yes Nausea and vomiting: No Pain level: 1 Mental status: Baseline
== END 2022-10-23 11:22 | disposition home or self-care (01) ==
PROVIDERS: Visit Provider Podiatrist Foot & Ankle Surgery
PROC: (CPT 13160; principal; 2022-10-23 09:45)
PROC: (CPT 13160; 2022-10-23 09:45)
DX: S90.851D Superficial foreign body, right foot, subsequent encounter (principal); W31.89XD Contact with other specified machinery, subsequent encounter; L97.523 Non-pressure chronic ulcer of other part of left foot with necrosis of muscle; G57.91 Unspecified mononeuropathy of right lower limb; M79.671 Pain in right foot
CPT/HCPCS: 13160; 64704; C9290; J0131; J0690; J2250; J2405; J2704; J3010; J3490; J7030

== ENCOUNTER → 2022-10-29 13:28 | Outpatient (BNVA) | payer MEDICAID, SELFPAY | PROVIDERS: Visit Provider Podiatrist Foot & Ankle Surgery | DX: Z98.890 Other specified postprocedural states (principal) | CPT/HCPCS: 99024 ==

== ENCOUNTER → 2022-11-12 13:42 | Outpatient (BNVA) | payer MEDICAID, SELFPAY | PROVIDERS: Visit Provider Podiatrist Foot & Ankle Surgery | DX: Z98.890 Other specified postprocedural states (principal) | CPT/HCPCS: 99024 ==

== ENCOUNTER → 2023-02-19 14:43 | Outpatient (BNVA) | payer MEDICAID, SELFPAY | PROVIDERS: Visit Provider Specialist | DX: G40.309 Generalized idiopathic epilepsy and epileptic syndromes, not intractable, without status epilepticus (principal) | CPT/HCPCS: 99213 ==

== ENCOUNTER → 2023-12-13 12:59 | Outpatient (BNVA) | payer MEDICAID, SELFPAY | PROVIDERS: Visit Provider Podiatrist Foot & Ankle Surgery | DX: T81.89XA Other complications of procedures, not elsewhere classified, initial encounter (principal); X58.XXXA Exposure to other specified factors, initial encounter | CPT/HCPCS: 99213 ==

== ENCOUNTER 2024-01-26 06:14 | Emergency (ER) | payer MEDICAID, SELFPAY ==
[2024-01-26 06:27] VITALS: BP 142/108; PULSE 112; TEMP 36.8; O2SAT 95; BMI 31.9
--- NOTE | 2024-01-26 06:58 | ED_ITS ---
HPI - Skin/Abscess/Foreign Bdy 2 General: Chief complaint: Skin/Abscess/Foreign Body Stated complaint: Right arm insect bite Time Seen by Provider: 01/26/24 06:32 Source: patient Mode of arrival: ambulatory History of Present Illness: 38-year-old male presents emergency room with complaint of insect bite. He states yesterday he was bitten on posterior aspect of his right upper arm distally just above the elbow. He smashed it thought it was a spider its gotten red and inflamed. He is also complaining of palpitations and what he describes as muscle spasms on his left side of his body. This is been intermittent since this happened he has not had a fever at home. No drainage from the wound no bulla development. Denies any chest pain or abdominal pain at this time. He states about an hour or 2 after a good bit he had abdominal cramping and diarrhea has not had recurrence of this still having the intermittent palpations. MD complaint: insect bite/sting Associated symptoms: Deny chills or fever(s) Review of Systems 2 Const: Denies: fever(s) or chills Card: Denies: chest pain Resp: Denies: dyspnea GI: Denies: abdominal pain : Denies: dysuria, urinary frequency or urinary urgency Musc: Denies: neck pain or back pain Skin/Breast: Denies: rash PFSH ED 2 PFSH: Medical History Convulsive generalized seizure disorder Family History Other Heart disease Lung disease Social History Smoking and tobacco/nicotine status: current every day tobacco/nicotine user cigarettes Packs smoked per day: 2 Alcohol intake: never Substance/Drug Use: never Physical Exam 2 Const: COMMON NORMALS: no acute distress GENERAL APPEARANCE: cooperative and comfortable ORIENTATION/CONSCIOUSNESS: Yes awake, Yes oriented to person, Yes oriented to place and Yes oriented to time HENMT: COMMON NORMALS: normocephalic, atraumatic and hearing grossly normal bilaterally HEAD & SCALP: normocephalic and atraumatic Resp: COMMON NORMALS: normal respiratory effort, No retractions, No use of accessory muscles and clear to auscultation bilaterally AUSCULTATION: clear to auscultation bilaterally Cardio: COMMON NORMALS: regular rate, regular rhythm and No murmurs present (Cardio) RATE: regular rate RHYTHM: regular rhythm GI: COMMON NORMALS: Soft to palpation and No hepatosplenomegaly present A USCULTATION: Yes normoactive bowel sounds PALPATION: Yes Soft to palpation, No Tenderness to palpation present (GI), No Guarding due to palpation present (GI) and Yes No hepatosplenomegaly present Neuro: SENSORIUM/ORIENTATION: Yes oriented to person, Yes oriented to place and Yes oriented to time Skin: OTHER: Mild redness and erythema on a patch approximately 6 inches in length and 3 inches in width the posterior distal right upper extremity extending from the mid humerus to the olecranon. There is no bulla no pointing no fluctuant areas on palpation it is moderately tender thickened and slightly warm to the touch appears erythematous. Course 2 Vital Signs: Vital signs: Vital Signs Temperature 98.2 F 01/26/24 06:27 Pulse Rate 79 01/26/24 08:23 Respiratory Rate 18 01/26/24 08:23 Blood Pressure 142/108 01/26/24 06:27 Pulse Oximetry 98 01/26/24 08:23 Oxygen Delivery Me thod Room Air 01/26/24 06:27 MDM - Skin/Abscess/Foreign Bdy Medicial Decision Making Localized cellulitis likely from an insect bite there is no central necrosis to the lesion started on Bactrim can use topical steroids [id number] as well follow-up with primary care if not improving Medical Records I reviewed the patient's medical records. Lab Data I reviewed the patient's lab results. 01/26/24 06:38 01/26/24 06:38 Laboratory Results WBC 12.33 10^3/uL (3.29-11.43) H 01/26/24 06:38 RBC 5.99 10^6/uL (3.85-5.65) H 01/26/24 06:38 Hgb 17.90 g/dL (11.27-16.99) H 01/26/24 06:38 Hct 53.1 % (37-53) H 01/26/24 06:38 MCV 88.6 fl (82-101) 01/26/24 06:38 MCH 29.9 pg (27-33) 01/26/24 06:38 MCHC 33.7 g/dL (30-55) 01/26/24 06:38 RDW 12.7 % (12.1-15.1) 01/26/24 06:38 Plt Count 334 10^3/cmm (157-399) 01/26/24 06:38 MPV 9.7 fL (7.4-10.4) 01/26/24 06:38 Neut % (Auto) 77.9 % 01/26/24 06:38 Lymph % (Auto) 15.8 % 01/26/24 06:38 [place] % (Auto) 4.9 % 01/26/24 06:38 Eos % (Auto) 0.6 % 01/26/24 06:38 Baso % (Auto) 0.6 % 01/26/24 06:38 Neut # (Auto) 9.59 10^3/uL (1.8-7.7) H 01/26/24 06:38 Lymph # (Auto) 2.0 10^3/uL (0.8-4.8) 01/26/24 06:38 [place] # (Auto) 0.6 10^3/uL (0.2-0.9) 01/26/24 06:38 Eos # (Auto) 0.1 10^3/uL (0.0-0.8) 01/26/24 06:38 Baso # (Auto) 0.1 10^3/uL (0.0-0.1) 01/26/24 06:38 Nucleated RBC % (auto) 0 % 01/26/24 06:38 Nucleated RBCs # 0.0 /100WBC 01/26/24 06:38 Sodium 139 mmol/L (136-145) 01/26/24 06:38 Potassium 4.2 mmol/L (3.5-5.1) 01/26/24 06:38 Chloride 104 mmol/L (98-107) 01/26/24 06:38 Carbon Dioxide 23 mmol/L (22-29) 01/26/24 06:38 Anion Gap 16.2 (5-19) 01/26/24 06:38 BUN 17 mg/dL (6-20) 01/26/24 06:38 Creatinine 0.7 mg/dL (0.7-1.2) 01/26/24 06:38 GFR Calculation 125.5 mL/min (90-130) 01/26/24 06:38 Glucose 126 mg/dL (65-115) H 01/26/24 06:38 Calculated Osmolality 291 mOsm/kg (285-295) 01/26/24 06:38 Lactic Acid 1.4 mmol/L (0.5-2.2) 01/26/24 06:38 Calcium 9.1 mg/dL (8.5-10.5) 01/26/24 06:38 Total Bilirubin 0.5 mg/dL (0.15-1.2) 01/26/24 06:38 AST 16 U/L (0-40) 01/26/24 06:38 ALT 15 U/L (0-41) 01/26/24 06:38 Alkaline Phosphatase 97 U/L (40-130) 01/26/24 06:38 Total Protein 7.3 g/dL (6.6-8.7) 01/26/24 06:38 Albumin 4.3 g/dL (3.5-5.2) 01/26/24 06:38 Globulin 3.0 g/dL (1.3-4.6) 01/26/24 06:38 Lipase 21 U/L (13-60) 01/26/24 06:38 No radiology studies performed this visit Discharge Plan Discharge Patient Disposition: Home Clinical Impression: Insect bites, Cellulitis Condition: Stable Prescriptions: New Bactrim DS 800-160 mg tablet 2 tab PO BID 10 Days Qty: 40 0RF No Action morphine 15 mg tablet 15 mg PO Q4H PRN (Reason: Pain) diphenhydramine HCl [NightTime Sleep Aid (diphen)] 25 mg capsule 50 mg PO TID PRN (Reason: sleep) levetiracetam [Keppra XR] 750 mg tablet extended release 24 hr 2,250 mg PO DAILY Qty: 300 3RF Excedrin Tension Headache 500-65 mg Tablet 1 tab PO Q6H PRN (Reason: Headache) tizanidine 4 mg tablet 4 - 8 mg PO Q8H PRN (Reason: Spasms) naproxen sodium 220 mg Tablet 220 mg PO BID PRN (Reason: INFLAMMATION OR PAIN) Narcan 4 mg/actuation [place],Non-Aerosol 4 mg INTRANASAL Q3M PRN (Reason: OVERDOSE) Rx Instructions: spray 1 dose into ONE nostril; alternate nostrils w each dose until help arrives divalproex 500 mg tablet extended release 24 hr 1,000 mg PO DAILY Discharge Orders: Discharge ED (Routine); Ordered 01/26/24 Ordered By: Kirill Rico Discharge Diet: Usual diet Discharge Activity: Resume usual activity Patient Instructions: Cellulitis (ED), Insect Bite or Sting (ED), Opioid Safety, Pain Management Activity Restrictions/Additional Instructions: Thank you for choosing [facility] for your healthcare needs today. It is very important that you follow up as instructed or that you return to the Emergency Department should you have concerns or if your condition changes or worsens in any way. You were seen today after an insect bite on your right upper arm. Your white count was mildly elevated the remainder of your labs were not significantly abnormal. Will discharge you home on oral antibiotics to be tablets twice a day for 10 days. Follow-up with your primary care doctor within the next week and sooner if your symptoms worsen or change. Coding Level of Care Code ED Steward/Stewardess Banquet for Arturo Banks
--- NOTE | 2024-01-26 07:05 | ECG_ITS ---
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 Measurements Intervals [place] Rate: 87 P: 55 MD: 137 QRS: -5 QRSD: 93 T: 34 QT: 318 QTc: 383 Interpretive Statements SINUS RHYTHM MINIMAL VOLTAGE CRITERIA FOR LVH, CONSIDER NORMAL VARIANT [MEETS CRITERIA IN ONE OF: R(aVL), S(V1), R(V5), R(V5/V6)+S(V1)] NONSPECIFIC T-WAVE ABNORMALITY No previous ECG available for comparison Electronically Signed On 01-28-2024 13:26:58 CDT by Arron Peters M.D. [email or web address]
[2024-01-26 07:24] LABS: Basophils # 0.1 10^3/uL (0.0-0.1); Basophils % 0.6 %; Eosinophils # 0.1 10^3/uL (0.0-0.8); Eosinophils % 0.6 %; Hematocrit 53.1 % (37-53); Lymphocytes % 15.8 %; Mean Corpuscular HGB Conc 33.7 g/dL (30-55); Mean Corpuscular Hemoglobin 29.9 pg (27-33); Mean Corpuscular Volume 88.6 fl (82-101); Mean Platelet Volume 9.7 fL (7.4-10.4); Monocytes # 0.6 10^3/uL (0.2-0.9); Monocytes % 4.9 %; Neutrophils # 9.59 10^3/uL (1.8-7.7); Neutrophils % 77.9 %; Nucleated Red Blood Cells % 0 %; Platelet Count 334 10^3/cmm (157-399); Red Blood Count 5.99 10^6/uL (3.85-5.65); Red Cell Distribution Width 12.7 % (12.1-15.1); White Blood Count 12.33 10^3/uL (3.29-11.43)
[2024-01-26 07:33] LABS: Alanine Aminotransferase 15 U/L (0-41); Albumin Level 4.3 g/dL (3.5-5.2); Alkaline Phosphatase 97 U/L (40-130); Anion Gap 16.2 (5-19); Aspartate Amino Transferase 16 U/L (0-40); Blood Urea Nitrogen 17 mg/dL (6-20); Calcium 9.1 mg/dL (8.5-10.5); Carbon Dioxide 23 mmol/L (22-29); Chloride 104 mmol/L (98-107); Creatinine Clr Calc Pharmacy 143.7567; Glomerular Filtration Rate 125.5 mL/min (90-130); Glucose 126 mg/dL (65-115); Lipase 21 U/L (13-60); Osmolality Calculated 291 mOsm/kg (285-295); Potassium 4.2 mmol/L (3.5-5.1); Sodium 139 mmol/L (136-145); Total Bilirubin 0.5 mg/dL (0.15-1.2); Total Protein 7.3 g/dL (6.6-8.7)
[2024-01-26 07:34] LABS: Lactic Sepsis W/Reflex 1.4 mmol/L (0.5-2.2)
--- NOTE | 2024-01-26 07:48 | PC.PHAR ---
PT HAS TAKEN MORPHINE AND TIZANIDINE TODAY BUT HAS NOT TAKEN SEIZURE MEDICATIONS YET.
[2024-01-26] MEDS: tetanus-dipt-pertussis 0.5 mL SDV IM (08:21)
[2024-01-26 08:23] VITALS: PULSE 79; RESP 18; O2SAT 98
== END 2024-01-26 08:23 | disposition home or self-care (01) ==
PROVIDERS: Emergency Provider Family Medicine
DX: S40.861A Insect bite (nonvenomous) of right upper arm, initial encounter (principal); L03.113 Cellulitis of right upper limb; W57.XXXA Bitten or stung by nonvenomous insect and other nonvenomous arthropods, initial encounter; F17.210 Nicotine dependence, cigarettes, uncomplicated; Z23 Encounter for immunization
CPT/HCPCS: 36415; 80053; 83605; 83690; 85025; 90471; 90715; 93005; 99284

== ENCOUNTER → 2024-02-23 14:46 | Outpatient (BNVA) | payer MEDICAID, SELFPAY | PROVIDERS: Visit Provider Specialist | DX: M51.04 Intervertebral disc disorders with myelopathy, thoracic region; M51.16 Intervertebral disc disorders with radiculopathy, lumbar region; G40.309 Generalized idiopathic epilepsy and epileptic syndromes, not intractable, without status epilepticus; G44.209 Tension-type headache, unspecified, not intractable | CPT/HCPCS: 99214 ==

== ENCOUNTER → 2024-03-08 14:31 | Outpatient (BNVA) | payer MEDICAID, SELFPAY | PROVIDERS: Visit Provider Podiatrist Foot & Ankle Surgery | DX: T81.89XA Other complications of procedures, not elsewhere classified, initial encounter (principal); S90.851A Superficial foreign body, right foot, initial encounter; X58.XXXA Exposure to other specified factors, initial encounter; Y83.8 Other surgical procedures as the cause of abnormal reaction of the patient, or of later complication, without mention of misadventure at the time of the procedure | CPT/HCPCS: 99213 ==

== ENCOUNTER 2024-03-27 05:15 | Emergency (ER) | payer MEDICAID, SELFPAY ==
[2024-03-27 05:23] VITALS: BP 120/88; PULSE 101; RESP 18; TEMP 36.7; O2SAT 100; BMI 30.4
[2024-03-27 05:41] LABS: Basophils # 0.1 10^3/uL (0.0-0.1); Basophils % 0.6 %; Eosinophils # 0.1 10^3/uL (0.0-0.8); Eosinophils % 0.6 %; Hematocrit 54.3 % (37-53); Lymphocytes # 2.9 10^3/uL (0.8-4.8); Lymphocytes % 26.6 %; Mean Corpuscular HGB Conc 33.5 g/dL (30-55); Mean Corpuscular Hemoglobin 29.4 pg (27-33); Mean Corpuscular Volume 87.9 fl (82-101); Mean Platelet Volume 9.4 fL (7.4-10.4); Monocytes # 0.6 10^3/uL (0.2-0.9); Monocytes % 5.4 %; Neutrophils % 66.4 %; Nucleated Red Blood Cells % 0 %; Platelet Count 299 10^3/cmm (157-399); Red Blood Count 6.18 10^6/uL (3.85-5.65); White Blood Count 11.01 10^3/uL (3.29-11.43)
[2024-03-27 05:56] VITALS: BP 114/79; PULSE 91; O2SAT 96
[2024-03-27 06:04] LABS: Alanine Aminotransferase 14 U/L (0-41); Albumin Level 4.3 g/dL (3.5-5.2); Alkaline Phosphatase 87 U/L (40-130); Anion Gap 17.6 (5-19); Aspartate Amino Transferase 15 U/L (0-40); Blood Urea Nitrogen 12 mg/dL (6-20); Calcium 9.3 mg/dL (8.5-10.5); Carbon Dioxide 24 mmol/L (22-29); Chloride 103 mmol/L (98-107); Creatinine Clr Calc Pharmacy 139.0929; Globulin 2.8 g/dL (1.3-4.6); Glomerular Filtration Rate 124.9 mL/min (90-130); Glucose 113 mg/dL (65-115); Lipase 18 U/L (13-60); Osmolality Calculated 291 mOsm/kg (285-295); Potassium 4.6 mmol/L (3.5-5.1); Sodium 140 mmol/L (136-145); Total Bilirubin 0.4 mg/dL (0.15-1.2); Total Protein 7.1 g/dL (6.6-8.7)
--- NOTE | 2024-03-27 06:06 | ED_ITS ---
HPI - Abdominal Pain 2 General: Chief Complaint: Abdominal Pain Stated Complaint: ABD Pain Time Seen by Provider: 03/27/24 05:23 History of Present Illness: 39-year-old male patient with a history of epilepsy. He reports epigastric pain for the past month that has slowly progressed. This morning he just could not take it anymore . He has vomited a total of 6 times in the last month. He has had hot and cold flashes. No true fever. No blood in the vomitus. He has had some diarrhea on and off as well. Related Data Home Medications Medication Instructions Recorded Confirmed diphenhydramine HCl 25 mg capsule 50 mg PO TID PRN sleep 12/11/19 03/08/24 (NightTime Sleep Aid (diphenhydramine)) morphine 15 mg immediate release 15 mg PO Q4H PRN Pain 12/11/19 03/08/24 tablet acetaminophen-caffeine 500 mg-65 1 tab PO Q6H PRN Headache 01/26/24 03/08/24 mg tablet (Excedrin Tension Headache) naloxone 4 mg/actuation nasal 4 mg intranasal Q3M PRN OVERDOSE 01/26/24 03/08/24 spray (Narcan) naproxen sodium 220 mg tablet 220 mg PO BID PRN INFLAMMATION OR 01/26/24 03/08/24 PAIN tizanidine 4 mg tablet 4 - 8 mg PO Q8H PRN Spasms 01/26/24 03/08/24 Previous Rx's Medication Instructions Recorded amitriptyline 25 mg tablet 25 mg PO DAILY #30 tabs 02/23/24 divalproex 500 mg tablet,extended See Rx Instructions .Route 02/23/24 release 24 hr .COMPLEX #180 tabs levetiracetam 750 mg See Rx Instructions .Route 02/23/24 tablet,extended release 24 hr .COMPLEX #270 tabs lansoprazole 30 mg capsule,delayed 30 mg PO DAILY #30 caps 03/27/24 release (Prevacid) sucralfate 1 gram tablet 1 g PO TID 4 weeks #84 tabs 03/27/24 Allergies Allergy/AdvReac Type Severity Reaction Status Date / Time diphenhydramine Allergy Mild Edema, Verified 03/27/24 05:26 [From Benadryl] Rash, Swelling PFSH ED 2 PFSH: Medical History Convulsive generalized seizure disorder Family History Other Heart disease Lung disease Social History Smoking and tobacco/nicotine status: current every day tobacco/nicotine user (1-2 packs a day) cigarettes Packs smoked per day: 2 Alcohol intake: never Substance/Drug Use: never Physical Exam 2 Const: COMMON NORMALS: no acute distress GENERAL APPEARANCE: cooperative; not ill appearing and not frail appearing HENMT: COMMON NORMALS: normocephalic, atraumatic and Normal external nose present HEAD & SCALP: normocephalic and atraumatic FACE & SINUS: normal facial exam and face symmetric NOSE: Normal external nose present Eye: COMMON NORMALS: Equal, round and reactive pupils present and EOMs intact bilaterally PUPIL: Yes Equal, round and reactive pupils present Neck/C-Spine: GENERAL: Yes trachea midline Chest: CHEST: Yes Symmetrical chest wall rise Resp: COMMON NORMALS: normal respiratory effort, No retractions, No use of accessory muscles and clear to auscultation bilaterally AUSCULTATION: clear to auscultation bilaterally Cardio: COMMON NORMALS: regular rate and regular rhythm RATE: regular rate RHYTHM: regular rhythm GI: COMMON NORMALS: Normal to inspection, nondistended, normoactive bowel sounds present and Soft to palpation PALPATION: Yes Soft to palpation, Yes Tenderness to palpation present (GI) and Yes Guarding due to palpation present (GI) Extremity: COMMON NORMALS: no pedal edema Neuro: TRIP COMA SCALE: document GCS findings Trip coma scale eye opening: Spontaneous Trip coma scale verbal response: Orientated [place] coma scale motor response: Obey commands [place] coma scale total score: 15 S ENSORY EXAM: Yes extremities (intact) Psych: COMMON NORMALS: speech normal SPEECH: Yes normal speech Skin: COMMON NORMALS: no rashes or lesions noted GENERAL SKIN EXAM: no rashes or lesions noted Course 2 Vital Signs: Vital signs: Vital Signs Temperature 98.0 F 03/27/24 05:23 Pulse Rate 101 H 03/27/24 05:23 Respiratory Rate 18 03/27/24 05:23 Blood Pressure 120/88 03/27/24 05:23 Pulse Oximetry 100 03/27/24 05:23 Oxygen Delivery Me thod Room Air 03/27/24 05:23 MDM - Abdominal Pain Medical Decision Making 39-year-old male with epigastric pain. He is afebrile. Vitals are stable. White blood cell count is 11. CRP is 3. Liver enzymes are normal. BMP is normal. Lipase is 18. He had some improvement with GI cocktail. He will be treated for gastritis. Lab Data 03/27/24 05:36 03/27/24 05:36 Labs/Radiology: Laboratory Results WBC 11.01 10^3/uL (3.29-11.43) 03/27/24 05:36 RBC 6.18 10^6/uL (3.85-5.65) H 03/27/24 05:36 Hgb 18.20 g/dL (11.27-16.99) H 03/27/24 05:36 Hct 54.3 % (37-53) H 03/27/24 05:36 MCV 87.9 fl (82-101) 03/27/24 05:36 MCH 29.4 pg (27-33) 03/27/24 05:36 MCHC 33.5 g/dL (30-55) 03/27/24 05:36 RDW 13.0 % (12.1-15.1) 03/27/24 05:36 Plt Count 299 10^3/cmm (157-399) 03/27/24 05:36 MPV 9.4 fL (7.4-10.4) 03/27/24 05:36 Neut % (Auto) 66.4 % 03/27/24 05:36 Lymph % (Auto) 26.6 % 03/27/24 05:36 [place] % (Auto) 5.4 % 03/27/24 05:36 Eos % (Auto) 0.6 % 03/27/24 05:36 Baso % (Auto) 0.6 % 03/27/24 05:36 Neut # (Auto) 7.30 10^3/uL (1.8-7.7) 03/27/24 05:36 Lymph # (Auto) 2.9 10^3/uL (0.8-4.8) 03/27/24 05:36 [place] # (Auto) 0.6 10^3/uL (0.2-0.9) 03/27/24 05:36 Eos # (Auto) 0.1 10^3/uL (0.0-0.8) 03/27/24 05:36 Baso # (Auto) 0.1 10^3/uL (0.0-0.1) 03/27/24 05:36 Nucleated RBC % (auto) 0 % 03/27/24 05:36 Nucleated RBCs # 0.0 /100WBC 03/27/24 05:36 Sodium 140 mmol/L (136-145) 03/27/24 05:36 Potassium 4.6 mmol/L (3.5-5.1) 03/27/24 05:36 Chloride 103 mmol/L (98-107) 03/27/24 05:36 Carbon Dioxide 24 mmol/L (22-29) 03/27/24 05:36 Anion Gap 17.6 (5-19) 03/27/24 05:36 BUN 12 mg/dL (6-20) 03/27/24 05:36 Creatinine 0.7 mg/dL (0.7-1.2) 03/27/24 05:36 GFR Calculation 124.9 mL/min (90-130) 03/27/24 05:36 Glucose 113 mg/dL (65-115) 03/27/24 05:36 Calculated Osmolality 291 mOsm/kg (285-295) 03/27/24 05:36 Calcium 9.3 mg/dL (8.5-10.5) 03/27/24 05:36 Total Bilirubin 0.4 mg/dL (0.15-1.2) 03/27/24 05:36 AST 15 U/L (0-40) 03/27/24 05:36 ALT 14 U/L (0-41) 03/27/24 05:36 Alkaline Phosphatase 87 U/L (40-130) 03/27/24 05:36 C-Reactive Protein 3.0 mg/L (0.0-4.9) 03/27/24 05:36 Total Protein 7.1 g/dL (6.6-8.7) 03/27/24 05:36 Albumin 4.3 g/dL (3.5-5.2) 03/27/24 05:36 Globulin 2.8 g/dL (1.3-4.6) 03/27/24 05:36 Lipase 18 U/L (13-60) 03/27/24 05:36 No radiology studies performed this visit Discharge Plan Discharge Patient Disposition: Home Clinical Impression: Gastritis Condition: Stable Prescriptions: New sucralfate 1 gram tablet 1 g PO TID 28 Days Qty: 84 0RF Prevacid 30 mg capsule,delayed release(DR/EC) 30 mg PO DAILY Qty: 30 0RF No Action morphine 15 mg tablet 15 mg PO Q4H PRN (Reason: Pain) diphenhydramine HCl [NightTime Sleep Aid (diphen)] 25 mg capsule 50 mg PO TID PRN (Reason: sleep) divalproex 500 mg tablet extended release 24 hr See Rx Instructions .ROUTE .COMPLEX Qty: 180 3RF Dose Instruction: TAKE 2 TABLETS BY MOUTH DAILY Rx Instructions: TAKE 2 TABLETS BY MOUTH DAILY amitriptyline 25 mg tablet 25 mg PO DAILY Qty: 30 11RF Rx Instructions: Take at bedtime levetiracetam 750 mg tablet extended release 24 hr See Rx Instructions .ROUTE .COMPLEX Qty: 270 3RF Dose Instruction: TAKE 3 TABLETS BY MOUTH DAILY Rx Instructions: TAKE 3 TABLETS BY MOUTH DAILY Excedrin Tension Headache 500-65 mg Tablet 1 tab PO Q6H PRN (Reason: Headache) tizanidine 4 mg tablet 4 - 8 mg PO Q8H PRN (Reason: Spasms) naproxen sodium 220 mg Tablet 220 mg PO BID PRN (Reason: INFLAMMATION OR PAIN) Narcan 4 mg/actuation [place],Non-Aerosol 4 mg INTRANASAL Q3M PRN (Reason: OVERDOSE) Rx Instructions: spray 1 dose into ONE nostril; alternate nostrils w each dose until help arrives Discharge Orders: Discharge ED (Routine); Ordered 03/27/24 Ordered By: Gavino Beck Patient Instructions: Gastritis (ED), Opioid Safety, Pain Management Activity Restrictions/Additional Instructions: Medication as directed. Take the sucralfate 30 minutes before meals. See your doctor this week. Return for vomiting liquids despite treatment, fever greater than 100, worsening pain despite treatment, other concerning symptoms. Coding Level of Care Code ED [employer] for Arturo Banks
[2024-03-27 06:20] LABS: Valproic Acid Level 6.8 ug/mL (50-100)
[2024-03-27 06:26] VITALS: BP 107/89; PULSE 92; O2SAT 94
[2024-03-27 06:28] VITALS: RESP 14
[2024-03-27] MEDS: morphine 4 mg/mL SDV 1 mL IVP (06:28)
[2024-03-27] MEDS: ondansetron 2 mg/ML SDV 2 mL 4 MG IVP (06:30)
[2024-03-27 06:58] LABS: Amphetamines Screen Urine Negative (Negative); Barbiturates Screen Urine Negative (Negative); Benzodiazepines Screen Urine Negative (Negative); Cocaine Screen Urine Negative (Negative); Opiate Screen Urine Positive (Negative); PCP Screen Urine Negative (Negative); THC Screen Urine Negative (Negative)
[2024-03-27 07:03] LABS: Bilirubin Urine Neg (Negative); Blood Urine Neg (Negative); Charge for UA Resulting for Rev; Glucose Urine UA Norm (Normal); Ketones Urine Negative (Negative); Leukocyte Esterase Urine Negative (Negative); Nitrate Urine Negative (Negative); Protein Urine Neg (Negative); Urine Appearance Clear (CLEAR); Urine Color Yellow (Yellow); Urobilinogen Urine Norm (Negative); pH Urine 6 (5-7)
== END 2024-03-27 07:01 | disposition home or self-care (01) ==
PROVIDERS: Emergency Provider Emergency Medicine
DX: K29.70 Gastritis, unspecified, without bleeding (principal); F17.210 Nicotine dependence, cigarettes, uncomplicated
CPT/HCPCS: 80053; 80164; 80306; 81003; 81015; 83690; 85025; 86140; 96374; 96375; 99284; J2270; J2405

== ENCOUNTER → 2024-05-02 13:47 | Outpatient (BNVA) | payer MEDICAID, SELFPAY | PROVIDERS: Visit Provider Orthopaedic Surgery | DX: M54.41 Lumbago with sciatica, right side (principal); M54.42 Lumbago with sciatica, left side; G89.29 Other chronic pain | CPT/HCPCS: 72110; 99204 ==

== ENCOUNTER → 2025-04-02 14:26 | Outpatient (BNVA) | payer MEDICAID, SELFPAY | PROVIDERS: Visit Provider Specialist | DX: G40.309 Generalized idiopathic epilepsy and epileptic syndromes, not intractable, without status epilepticus (principal); G44.209 Tension-type headache, unspecified, not intractable; M51.04 Intervertebral disc disorders with myelopathy, thoracic region; M51.16 Intervertebral disc disorders with radiculopathy, lumbar region | CPT/HCPCS: G0463 ==

== ENCOUNTER → 2025-06-26 12:32 | Outpatient (BNVA) | payer MEDICAID, SELFPAY | PROVIDERS: Visit Provider Specialist | DX: G40.309 Generalized idiopathic epilepsy and epileptic syndromes, not intractable, without status epilepticus (principal); K29.90 Gastroduodenitis, unspecified, without bleeding; G44.209 Tension-type headache, unspecified, not intractable; M51.04 Intervertebral disc disorders with myelopathy, thoracic region; M51.16 Intervertebral disc disorders with radiculopathy, lumbar region; F17.210 Nicotine dependence, cigarettes, uncomplicated | CPT/HCPCS: 99214 ==